=== PATIENT | female | born 1965 | race Caucasian/White ===

== ENCOUNTER → 2023-12-20 | Day surgery (SDC) | payer BC ==
[~2023-12-20] MED LIST: FENTANYL CITRATE/PF 100MCG/2 ML INJ ONE; HYOSCYAMINE SULFATE 0.5 MG/ML INJ ONE; LIDOCAINE HCL 2% LOCAL INJ 5 ML SDV VIAL INJ ONE; PROPOFOL IV EMULSION 10 MG/ML 20 ML VIAL ONE
[2023-12-20] MEDS: LACTATED RINGER'S 1,000 ML ONE (07:54)
[2023-12-20 08:59] VITALS: TEMP 97.6
[2023-12-20 09:30] VITALS: BP 102/74; PULSE 71; RESP 16; O2SAT 97
== END | disposition home or self-care (01) ==
LOC: OR 07:35 → EDSEX 09:00
PROVIDERS: ATTEND Internal Medicine Gastroenterology
DX: Z12.11 Encounter for screening for malignant neoplasm of colon (principal); D12.5 Benign neoplasm of sigmoid colon; E78.5 Hyperlipidemia, unspecified; Z88.3 Allergy status to other anti-infective agents; Z01.810 Encounter for preprocedural cardiovascular examination
CPT/HCPCS: 45385; 81025; 93005; J3010; J7121; 45378; J1980; J2001